=== PATIENT | female | born 1945 | race Caucasian/White ===

== ENCOUNTER 2018-06-15 21:39 | Emergency (ER) | payer OTHER, MEDICARE ==
[2018-06-15] MEDS ORDERED: METHYLPREDNISOLONE 125 MG INJ ONE (22:53)
[2018-06-15] MEDS ORDERED: DIPHENHYDRAMINE 50 MG/ML VIAL ONE (22:53)
--- NOTE | 2018-06-15 23:07 | EDPHYS ---
Physician Documentation [facility] Name: Louise Enriquez Age: 72 yrs Sex: Female : 1945 Arrival Date: 06/15/2018 Time: 21:43 Bed 23 Private MD: Didier Tay C ED Physician Ean Aj HPI: 06/15 23:03 This 72 yrs old Female presents to ER via Ambulatory with complaints of pkl Itching. 23:03 The patient presents with itching. Onset: The symptoms/episode began/occurred 2 day(s) pkl ago. Associated signs and symptoms: The patient has no apparent associated signs or symptoms. Historical: - Allergies: 21:53 No Known Allergies; la1 - PMHx: 21:53 BREAST CA; DVT; Myocardial infarction; Hypertension; la1 - Immunization history:: Adult Immunizations up to date. - Social history:: Smoking status: Patient/guardian denies using tobacco. - Ebola Screening: : No symptoms or risks identified at this time. ROS: 23:03 Eyes: Negative for injury, pain, redness, and discharge, ENT: Negative for injury, pkl pain, and discharge, Neck: Negative for injury, pain, and swelling, Cardiovascular: Negative for chest pain, palpitations, and edema, Respiratory: Negative for shortness of breath, cough, wheezing, and pleuritic chest pain, Abdomen/GI: Negative for abdominal pain, nausea, vomiting, diarrhea, and constipation, Back: Negative for injury and pain, : Negative for injury, bleeding, discharge, and swelling, MS/Extremity: Negative for injury and deformity, Neuro: Negative for headache, weakness, numbness, tingling, and seizure. 23:03 Skin: Positive for Itching. Exam: 23:03 Head/Face: Normocephalic, atraumatic. Eyes: Pupils equal round and reactive to light, pkl extra-ocular motions intact. Lids and lashes normal. Conjunctiva and sclera are non-icteric and not injected. Cornea within normal limits. Periorbital areas with no swelling, redness, or edema. ENT: Nares patent. No nasal discharge, no septal abnormalities noted. Tympanic membranes are normal and external auditory canals are clear. Oropharynx with no redness, swelling, or masses, exudates, or evidence of obstruction, uvula midline. Mucous membranes moist. Neck: Trachea midline, no thyromegaly or masses palpated, and no cervical lymphadenopathy. Supple, full range of motion without nuchal rigidity, or vertebral point tenderness. No Meningismus. Chest/axilla: Normal chest wall appearance and motion. Nontender with no deformity. No lesions are appreciated. Cardiovascular: Regular rate and rhythm with a normal S1 and S2. No gallops, murmurs, or rubs. Normal PMI, no JVD. No pulse deficits. Respiratory: Lungs have equal breath sounds bilaterally, clear to auscultation and percussion. No rales, rhonchi or wheezes noted. No increased work of breathing, no retractions or nasal flaring. Abdomen/GI: Soft, non-tender, with normal bowel sounds. No distension or tympany. No guarding or rebound. No evidence of tenderness throughout. Back: No spinal tenderness. No costovertebral tenderness. Full range of motion. MS/ Extremity: Pulses equal, no cyanosis. Neurovascular intact. Full, normal range of motion. Neuro: Awake and alert, GCS 15, oriented to person, place, time, and situation. Cranial nerves II-XII grossly intact. Motor strength 5/5 in all extremities. Sensory grossly intact. Cerebellar exam normal. Normal gait. 23:03 Skin: Exam negative for rash. Vital Signs: 21:53 BP 149 / 70; Pulse 74; Resp 16; Temp 97.8; Pulse Ox 98% on R/A; Weight 113.4 kg; Height la1 5 ft. 3 in. (160.02 cm); 23:00 BP 142 / 88; Pulse 76; Resp 17; Pulse Ox 99% ; kr2 21:53 Body Mass Index 44.29 (113.40 kg, 160.02 cm) la1 MDM: 22:30 Patient medically screened. pkl 23:03 Data reviewed: vital signs, nurses notes. pkl Administered Medications: 22:53 Drug: SOLU-Medrol 125 mg Route: IM; Site: right gluteus; kr2 23:20 Follow up: Response: No adverse reaction; Marked relief of symptoms kr2 22:53 Drug: Benadryl 50 mg Route: IM; Site: right deltoid; kr2 23:20 Follow up: Response: No adverse reaction; Marked relief of symptoms kr2 Disposition: 06/15/18 23:06 Discharged to Home. Impression: Generalized itching. - Condition is Stable. - Medication Reconciliation Form, Thank You Letter, Antibiotic Education, Prescription Opioid Use form. - Follow up: Didier Tay MD; When: 2 - 3 days; Reason: Re-evaluation by your physician. - Problem is new. - Symptoms have improved. Signatures: Ean Aj MD MD pkl Isai Martin RN RN la1 Sarah Henriquez RN RN kr2 Zoraida Arana mw2 Corrections: (The following items were deleted from the chart) 23:39 23:06 06/15/2018 23:06 Discharged to Home. Impression: Generalized itching. Condition mw2 is Stable. Forms are Medication Reconciliation Form, Thank You Letter, Antibiotic Education, Prescription Opioid Use. Follow up: Didier Tay; When: 2 - 3 days; Reason: Re-evaluation by your physician. Problem is new. Symptoms have improved. pkl
--- NOTE | 2018-06-15 23:07 | ER ---
Nurse's Notes [facility] Name: Louise Enriquez Age: 72 yrs Sex: Female : 1945 Arrival Date: 06/15/2018 Time: 21:43 Bed 23 Private MD: Didier Tay C Diagnosis: Generalized itching Presentation: 06/15 21:52 Presenting complaint: Patient states: last night and tonight I am getting very bad la1 itching all over. Transition of care: patient was not received from another setting of care. Onset: The symptoms/episode began/occurred yesterday. Anaphylaxis evaluation, the patient reports or I have noted the following symptoms which indicate a significant risk of anaphylaxis:. Onset of symptoms was June 15, 2018. Risk Assessment: Do you want to hurt yourself or someone else? Patient reports no desire to harm self or others. Initial Sepsis Screen: Does the patient meet any 2 criteria? No. Patient's initial sepsis screen is negative. Does the patient have a suspected source of infection? No. Patient's initial sepsis screen is negative. Care prior to arrival: None. 21:52 Method Of Arrival: Ambulatory la1 21:52 Acuity: JAIR 4 la1 Historical: - Allergies: 21:53 No Known Allergies; la1 - PMHx: 21:53 BREAST CA; DVT; Myocardial infarction; Hypertension; la1 - Immunization history:: Adult Immunizations up to date. - Social history:: Smoking status: Patient/guardian denies using tobacco. - Ebola Screening: : No symptoms or risks identified at this time. Screenin:00 Abuse screen: Denies threats or abuse. Denies injuries from another. Nutritional kr2 screening: No deficits noted. Tuberculosis screening: No symptoms or risk factors identified. Fall Risk Ambulatory Aid- Crutches/Cane/Walker (15 pts). Assessment: 22:00 General: Appears in no apparent distress. comfortable, well groomed, well developed, kr2 well nourished, Behavior is calm, cooperative, appropriate for age. Pain: Denies pain. Neuro: Level of Consciousness is awake, alert, obeys commands, Oriented to person, place, time, situation, Appropriate for age. Cardiovascular: Capillary refill < 3 seconds in bilateral fingers Patient's skin is warm and dry. Respiratory: Airway is patent Respiratory effort is even, unlabored, Respiratory pattern is regular, symmetrical, Breath sounds are clear bilaterally. Derm: Skin is intact, is healthy with good turgor, Skin is pink, warm \T\ dry. Patient reports itching all over last night and tonight she has itching in her hands, no rash. 23:15 Reassessment: Patient appears in no apparent distress at this time. Patient and/or kr2 family updated on plan of care and expected duration. Pain level reassessed. Patient is alert, oriented x 3, equal unlabored respirations, skin warm/dry/pink. Patient denies pain at this time. Vital Signs: 21:53 BP 149 / 70; Pulse 74; Resp 16; Temp 97.8; Pulse Ox 98% on R/A; Weight 113.4 kg; Height la1 5 ft. 3 in. (160.02 cm); 23:00 BP 142 / 88; Pulse 76; Resp 17; Pulse Ox 99% ; kr2 21:53 Body Mass Index 44.29 (113.40 kg, 160.02 cm) la1 ED Course: 21:43 Patient arrived in ED. es 21:43 Didier Tay MD is Private Physician. es 21:53 Triage completed. la1 21:54 Arm band placed on right wrist. la1 22:00 Patient has correct armband on for positive identification. Bed in low position. Call kr2 light in reach. Side rails up X 1. Adult w/ patient. Pulse ox on. NIBP on. Door closed. Head of bed elevated. 22:30 Ean Aj MD is Attending Physician. pkl 22:44 Sarah Henriquez RN is Primary Nurse. kr2 23:06 Didier Tay MD is Referral Physician. pkl 23:31 No provider procedures requiring assistance completed. Patient did not have IV access kr2 during this emergency room visit. Administered Medications: 22:53 Drug: SOLU-Medrol 125 mg Route: IM; Site: right gluteus; kr2 23:20 Follow up: Response: No adverse reaction; Marked relief of symptoms kr2 22:53 Drug: Benadryl 50 mg Route: IM; Site: right deltoid; kr2 23:20 Follow up: Response: No adverse reaction; Marked relief of symptoms kr2 Outcome: 23:06 Discharge ordered by . pkl 23:31 Discharged to home ambulatory, with friend. kr2 23:31 Condition: good 23:31 Discharge instructions given to patient, Instructed on discharge instructions, follow up and referral plans. Demonstrated understanding of instructions, follow-up care. 23:39 Patient left the ED. mw2 Signatures: Ean Aj MD MD pkl Salyer, Edna es Attema, Lee RN RN la1 Sarah Henriquez RN RN kr2 Zoraida Arana mw2 Corrections: (The following items were deleted from the chart) 23:29 22:00 Reassessment: Patient appears in no apparent distress at this time. Patient kr2 and/or family updated on plan of care and expected duration. Pain level reassessed. Patient is alert, oriented x 3, equal unlabored respirations, skin warm/dry/pink. Patient denies pain at this time. kr2
[2018-06-16 00:25] VITALS: TEMP 97.8
[2018-06-16 00:26] VITALS: BP 142/88; O2SAT 99
== END 2018-06-15 23:39 | disposition home or self-care (01) ==
LOC: ER 21:39
DX: L29.9 Pruritus, unspecified (principal)
CPT/HCPCS: 96372; 99283; J2930

== ENCOUNTER 2022-08-21 06:51 | Day surgery (SDC) | payer OTHER, MEDICARE ==
--- NOTE | 2022-08-18 10:47 | RAD REPORT ---
EXAM DESCRIPTION: Clinton Cerna (2 Views)08/18/2022 10:28 am CLINICAL HISTORY: Preop for breast surgery COMPARISON: 2016 FINDINGS: The lungs appear clear of acute infiltrate. The heart is mildly enlarged. Postsurgical ch anges involve the chest IMPRESSION: No acute abnormalities displayed
[2022-08-18 11:03] LABS: Absolute Lymphocytes (CBC) 1.1 K/uL (0.7-4.9); Hematocrit 41.5 % (36.0-45.0); Lymphocytes % 25.6 % (15.3-44.8); MCV 93.4 fL (80-100); MPV 7.2 fL (7.6-11.3); RBC Red Blood Cell Count 4.45 M/uL (3.86-4.86)
[2022-08-18 11:09] LABS: Potassium 4.4 mmol/L (3.5-5.1)
--- NOTE | 2022-08-18 17:30 | EKG ---
Test Date: 2022-08-18 Test Time: 10:09:20 Turbo Electric Operator: CELESTE MEASUREMENT RESULTS: Intervals: Rate: 82 HI: 162 QRSD: 88 QT: 380 QTc: 443 [place]: P: 57 HI: 162 QRS: -57 T: 53 INTERPRETIVE STATEMENTS: Normal sinus rhythm Left axis deviation Possible Anterolateral infarct, age undetermined Abnormal ECG Compared to ECG 01/15/2016 09:06:15 No significant changes Electronically Signed On 08-18-22 17:29:51 FREIGHT RATE ANALYST by Morgan Moseley
[2022-08-21] MEDS ORDERED: Ringers Lactate 1,000 ML IV ONE (07:13)
[2022-08-21] MEDS ORDERED: FENTANYL CITR 100 MCG/2 ML ONE (08:28)
[2022-08-21] MEDS ORDERED: LIDOCAINE 1% MPF 5 ML VIAL ONE (08:28)
[2022-08-21] MEDS ORDERED: propofoL 200 MG/20 ML VIAL IV ONE (08:28)
[2022-08-21] MEDS ORDERED: dexAMETHasone 4 MG/ML VIAL ONE (08:29)
[2022-08-21] MEDS ORDERED: KETOROLAC 30 MG/ML INJ ONE (08:29)
[2022-08-21] MEDS ORDERED: ONDANSETRON 4 MG/2 ML VIAL ONE (08:29)
[2022-08-21] MEDS: CEFAZOLIN SODIUM 1 GM/VIAL ONE ×2 (08:29→08:43)
[2022-08-21] MEDS ORDERED: EPHEDRINE SULF 50 MG/ML VIAL ONE (09:03)
--- NOTE | 2022-08-21 09:48 | P.BOP ---
Preoperative diagnosis: R breast masses(2) Upper outer quadrant, lower outer quadrant,breast cancer Postoperative diagnosis: same Primary procedure: 1. Right breast lumpectomy Upper outer quadrant 3x3cm Secondary procedure: 2. Right breast lumpectomy lower outer quadrant 2x2cm Jack Prizer: SEBLE MOLINA (GYPSUM BLOCK SETTER) Estimated blood loss: <10cc Specimen: masses x 2 Findings: calcified masses Anesthesia: General Complications: None Transferred to: Recovery Room Condition: Good
[2022-08-21] MEDS: HYDROMORPHONE HCL 1 MG/ML INJ ONE ×2 (10:17→10:22)
[2022-08-21 11:29] VITALS: BP 163/64; TEMP 96.9; O2SAT 96
--- NOTE | 2022-08-21 17:54 | DS ---
Date of Discharge: 08/21/2022 Diagnosis: Right breast mass x2. Procedure: Right breast lumpectomy x2. Disposition: Home. Activity: As tolerated. No heavy lifting. Plan: Followup in my office in 1 week. Call for appointment on [phone]. Keep area intact until sh e see us in the next few days. MATTHEW/USAMA Voice ID: [id number] Report ID: [id number]
--- NOTE | 2022-08-21 17:54 | OP ---
Date of Procedure: 08/21/2022 Surgeon: Teofilo Mcdonnell MD Lunch Wagon Operator: Viri Acosta. Preoperative Diagnoses: Palpable right breast masses; 1.Upper outer quadrant. 2.Lower outer quadrant, also history of breast cancer. Postoperative Diagnoses: Palpable right breast masses; 1.Upper outer quadrant. 2.Lower outer quadrant, also history of breast cancer. Procedures: 1.Right breast lumpectomy, upper outer quadrant about 3 x 3 cm. 2.Right breast lumpectomy, lower outer quadrant, 2 x 2 cm. Estimated Blood Loss: Less than 10 mL. Specimen: Masses x2. Findings: Calcified masses. Anesthesia: General plus local. Indication: This is the case of a female with history of breast cancer, now came with 2 masses palpa mi on the breast, right upper outer quadrant and lower outer quadrant. The oncologist felt the mass es 2 and do want an excisional biopsy not only because it is an area which she has previous cancer, b ut also because it is bothering the patient. The patient does not want a core and want the mass pepper anaya, so we scheduled her for right breast lumpectomy x2. The benefits, alternatives, and risks fully explained which include, but not limited to infection, bleeding, damage to adjacent structures, anes thesia complication, ME, and even . She also understands this may not relieve any symptoms. Sh gabriel might need more than one surgical intervention. She understood, signed a consent. The area of con cern was marked by me and the patient in the holding room. Procedure In Detail: The patient was brought to the operating room, placed in supine position. Anes thesia was done without complication. The right breast was prepped and draped in usual sterile fashi on. There are 2 different masses, so we have to make 2 different incisions. We started with a small 1 first that area. We proceeded to make a wedge incision on the skin since the skin looks to be inv olved with it. Incision was carried down and we followed this calcified mass. We went around that m ass and removed it and marked for orientation. Muscles seem not to be involved. Area was irrigated. Hemostasis was obtained and we closed the area with a chromic and miguel. The second mass was on the upper outer quadrant. Once again, a wedge incision on the skin was made. Incision was carried d own all the way to the mass. It looked like a calcified multinodular mass, does not involve the fasc ia of the muscle, so the mass was completely excised and marked for orientation. The area was irriga mi. Once again, that area was closed with a combination of chromic and miguel. Hemostasis was obt ained. Irrigation also was done at the beginning. Also, local anesthesia was applied. The patient tolerated the procedure well. The patient was sent to recovery in stable condition. MATTHEW/USAMA Voice ID: [id number] Report ID: [id number]
== END 2022-08-21 11:20 | disposition home or self-care (01) ==
LOC: OR 06:51
PROVIDERS: ATTEND Surgery
PROC: 0HBT0ZZ Excision of Right Breast, Open Approach (ICD-10-PCS; principal; 2022-08-21 08:30)
DX: L72.0 Epidermal cyst (principal); M79.5 Residual foreign body in soft tissue; N64.89 Other specified disorders of breast; N63.11 Unspecified lump in the right breast, upper outer quadrant; N63.13 Unspecified lump in the right breast, lower outer quadrant; Z85.3 Personal history of malignant neoplasm of breast
CPT/HCPCS: 19301 ×2; 93005; 85025; 80048; 36415; 88305; 71046; J2704; J1100; J2001; J3010; J1170; J7120; J2405; J0690; 88307; 88311

== ENCOUNTER 2024-04-29 12:10 | Day surgery (SDC) | payer OTHER, MEDICARE ==
[2024-04-28 15:42] LABS: Absolute Lymphocytes (CBC) 1.3 K/uL (0.7-4.9); Absolute Monocytes 0.7 K/uL (0.1-1.3); Absolute Neutrophil 3.3 K/uL (1.8-8.0); Basophils % 0.7 % (0-1.3); Eosinophils % 0.6 % (0-4.4); Hematocrit 40.6 % (36.0-45.0); Hemoglobin 13.1 g/dL (12.0-15.0); Lymphocytes % 23.9 % (15.3-44.8); MCH 29.1 pg (27.0-35.0); MCHC 32.2 g/dL (32.0-36.0); MCV 90.1 fL (80-100); Monocytes % 13.8 % (3.3-12.3); Platelets 216 thou/uL (152-406); RBC Red Blood Cell Count 4.51 M/uL (3.86-4.86); Red Cell Distribution Width 17.9 % (12.1-15.2)
[2024-04-28 15:45] LABS: PT Prothrombin Time 11.9 SECONDS (9.4-12.5); PTT, Activated Partial Thromb 33.2 SECONDS (24.3-36.9); Protime INR 1.06
[2024-04-28 15:58] LABS: Anion Gap 7.4 mEq/L (5.0-15.0); Potassium 4.4 mEq/L (3.5-5.1)
--- NOTE | 2024-04-28 16:17 | RAD REPORT ---
Procedure: Chest Pa And Lat (2 Views) History: Preop for carotid and coronary angiogram Comparison: 2022 The lungs appear clear of acute infiltrate. No significant pleural effusion noted. The heart is mildly enlarged IMPRESSION: No acute abnormality is displayed.
[2024-04-29] MEDS ORDERED: NA CHLORIDE 0.9% 500 ML ONE (12:35)
[2024-04-29] MEDS ORDERED: HEPARIN 10,000 UNIT/10 ML VIAL IV ONE (13:13)
[2024-04-29] MEDS ORDERED: LIDOCAINE 1% 20 ML MDV ONE (13:13)
[2024-04-29] MEDS ORDERED: TICAGRELOR 90 MG TABLET PO ONE (13:14)
[2024-04-29] MEDS ORDERED: CLOPIDOGREL 75 MG TABLET ONE (13:14)
[2024-04-29] MEDS ORDERED: ATROPINE SULF 1 MG/10 ML SYR IV ONE (13:14)
[2024-04-29] MEDS ORDERED: HEPA 1000U/500MLS 2,000 UNIT/1,000 ML BAG IV ONE (13:15)
[2024-04-29] MEDS ORDERED: ASPIRIN 81 MG CHEWABLE TABLET ONE (13:15)
[2024-04-29] MEDS ORDERED: FENTANYL CITR 100 MCG/2 ML ONE (13:15)
[2024-04-29] MEDS ORDERED: MIDAZOLAM HCL 2 MG/2 ML INJ ONE (13:16)
[2024-04-29 15:54] VITALS: O2SAT 96
[2024-04-29 16:51] VITALS: BP 154/58
--- NOTE | 2024-04-29 21:00 | OP ---
Date of Procedure: 04/29/2024 Surgeon: KERI EVANS Procedures Performed: 1.Selective coronary angiogram. 2.Carotid angiogram, selective bilaterally. Indications: 1.Chest pain with abnormal stress test. 2.Carotid stenosis. Access: Right common femoral artery 6-Georgian closed with 6-Georgian Mynx closure device. Complications: None. Bleeding: Less than 50 mL. Anesthesia: Total sedation time was 45 minutes, used fentanyl and Versed. Description Of Procedure: After risks, benefits, and alternatives were explained, patient agreed to the procedure and signed informed consent. The [facility], prepped and draped in usual sterile fashion. Then, I accessed the right common femoral arter y using micropuncture kit, ultrasound guidance, and fluoroscopy, placed 6-Georgian [place] sheath and then took a 4-Georgian 3DRC catheter into the aortic arch and engaged the right common carotid, took st andard views, and then in the left common carotid, took standard views and then the same catheter was used to engage the RCA, took standard views. I then exchanged for 6-Georgian JL4 catheter, engaged th e left main, took standard views and then removed the catheter and the sheath, and used a 6-Georgian My nx closure device with good hemostasis. Findings: 1.Left main; proximal 20%, but it is very large with large lumen. 2.LAD; proximal mid segment and normal distal segment having mild 20% to 30% diffuse disease. Diago nal branches are with luminal irregularities. 3.Left circumflex; proximal segment is normal and then left circumflex becomes small. The OM1 branc h is very large. Has 50% stenosis in the proximal segment. 4.RCA; it is dominant circulation which is normal, and on the PDA, there is about 40% stenosis proxi cruz. Carotid Angiogram: 1.The right common carotid. Mid to distal, there is a severely calcified 90% stenosis, extends into the pulp and into the internal carotid artery which has about 70% stenosis. The external carotid ar dee is normal. 2.Left common carotid is normal. Left internal carotid is with 30% stenosis, and left external suárez tid is normal. Conclusion: 1.Severe right common carotid and internal carotid artery stenosis. 2.Mild to moderate coronary artery disease. Recommendation: Endarterectomy of the right side in the near future. SR/MODL Voice ID: [id number] Report ID: [id number]
== END 2024-04-29 16:45 | disposition home or self-care (01) ==
LOC: CCL 12:10
PROVIDERS: ATTEND Internal Medicine
DX: I65.23 Occlusion and stenosis of bilateral carotid arteries (principal); I25.10 Atherosclerotic heart disease of native coronary artery without angina pectoris; I10 Essential (primary) hypertension; E78.2 Mixed hyperlipidemia; Z86.73 Personal history of transient ischemic attack (TIA), and cerebral infarction without residual deficits; Z86.718 Personal history of other venous thrombosis and embolism; Z79.01 Long term (current) use of anticoagulants; Z82.49 Family history of ischemic heart disease and other diseases of the circulatory system; I34.0 Nonrheumatic mitral (valve) insufficiency
CPT/HCPCS: 85025; 80048; 36415; 85610; 85730; 71046; 93454; 36222; 76937; C1893; J2001; J2250; J3010; J7040; 99152; 99153; J0461

== ENCOUNTER 2024-05-31 10:01 | Emergency (ER) | payer OTHER, MEDICARE ==
--- OUTSIDE RECORDS SUMMARY | 2024-05-31 10:06 | XMS REPORT | Continuity of Care Document ---
Author Name Unknown Address [address] [facility] [address] [place] [address] [facility] Address [address] [facility] [address] [place] [address] Care Team Providers Care Marketing Developer Name Role Phone Antonia Mims Attending Clinician Antonia Coleman Admitting Clinician Natalie rios Payers Payer Name Policy Type Policy Number Effective Date Expirati on Date Source Allergies, Adverse Reactions, Alerts Allergy Name Allergy Type Status Severity Reaction(s) Onset Date Inactive Date Treating Clinician Comments Source No Known Allergie s DA Active U 2023-07 0- 00:00: 00 [facility] No Known Allergie s DA Active U 2023-07 0- 00:00: 00 [facility] Procedures Procedure Date / Time Performed Performing Clinicia n Source [id number] 2024-05-21 00:00:00 [facility] [id number] 2024-05-21 00:00:00 [facility]01 [facility] [id number] 2024-05-21 00:00:00 [facility]01 [facility] Encounters Start Date/Time End Date/Time Encounter Type Admission Type Attending Clinicians Care Facility Care Department Encounter ID Source 2024-05-21 10:09:00 2024-05-22 12:02:[address] [facility] CARD [id number] [facility] Results Test Description Test Time Test Comments Results Result Co mments Source BASIC METABOLIC [id number] 03:53:00* Test Item Value Reference Range Interpretation Comme nts SODIUM (test code = NA) 141 mEq/L 134-147 N POTASSIUM (test code = K) 4.6 mEq/L 3.4-5.0 CHLORIDE (test code = CL) 111 mEq/L 100-108 H CARBON DIOXIDE (test code = CO2) 24 mEq/l 21-33 N ANION GAP (test code = GAP) 11 0-20 N GLUCOSE (test code = GLU) 110 mg/dL 77-141 N BLOOD UREA NITROGEN (test code = BUN) 14 mg/dL 7-25 N GLOMERULAR FILTRATION RATE (test code = GFR) 87.4 70-80 H The Glomerular Filtration Rate is a calculated parameterbased on serum Creatinine, patient age and sex. GFR valuesless than 60 mL/min/1.73 square meters are indicative ofChronic Kidney Disease. Values less than 15 mL/min/1.73square meters indicate Kidney failure. The calculation forGFR is based on the CKD-EPI (2020) calculation. This formulais race indifferent and is the recommended formula for GFRby the National Kidney Foundation for Adults.The GFR will not calculate if the sex is unknown or if thepatient's age is <18 years. CREATININE (test code = CREAT) 0.7 mg/dL 0.6-1.3 N CALCIUM (test code = CA) 8.6 mg/dL 8.0-10.5 N CBC W/AUTO [id number] 03:41:00* Test Item Value Reference Range Interpretation Comme nts WHITE BLOOD CELL (test code = WBC) 6.1 x10 3/uL 4.5-11.0 RED BLOOD CELL (test code = RBC) 3.58 x10 6/uL 3.54-5.02 N HEMOGLOBIN (test code = HGB) 10.0 g/dL 11.0-15.0 L HEMATOCRIT (test code = HCT) 31.5 % 33.0-45.0 L MEAN CELL VOLUME (test code = MCV) 88.0 fL 81.0-99.0 N MEAN CELL HGB (test code = MCH) 27.9 pg 27.0-33.0 N MEAN CELL HGB CONCETRATION (test code = MCHC) 31.7 g/dL 33.0-37.0 L RED CELL DISTRIBUTION WIDTH CV (test code = RDW) 16.3 % 11.5-14.5 H RED CELL DISTRIBUTION WIDTH SD (test code = RDW-SD) 52.8 fL 37.0-54.0 N PLATELET COUNT (test code = PLT) 162 x10 3/uL 150-400 N MEAN PLATELET VOLUME (test c ode = MPV) 9.0 fL 7.0-9.0 N NEUTROPHIL % (test code = NT%) 82.4 % 56.0-77.0 H IMMATURE GRANULOCYTE % (test code = IG%) 0.7 % 0.0-2.0 N LYMPHOCYTE % (test code = LY%) 10.0 % 14.0-32.0 L MONOCYTE % (test code = MO%) 6.9 % 4.8-9.0 N EOSINOPHIL % (test code = EO%) 0.0 % 0.3-3.7 L BASOPHIL % (test code = BA%) 0.0 % 0.0-2.0 N NUCLEATED RBC % (test code = NRBC%) 0.0 % 0-0 N NEUTROPHIL # (test code = NT#) 5.03 x10 3/uL 2.0-7.6 N IMMATURE GRANULOCYTE # (test code = IG#) 0.04 x10 3/uL 0.00-0.03 H LYMPHOCYTE # (test code = LY#) 0.61 x10 3/uL 1.0-3.8 L MONOCYTE # (test code = MO#) 0.42 x10 3/uL 0.1-0.8 N EOSINOPHIL # (test code = EO#) 0.00 x10 3/uL 0.0-0.2 N BASOPHIL # (test code = BA#) 0.00 x10 3/uL 0.0-0.2 N NUCLEATED RBC # (test code = NRBC#) 0.00 x10 3/uL 0.0-0.1 N BASIC METABOLIC [id number] 17:24:00* Test Item Value Reference Range Interpretation Comme nts SODIUM (test code = NA) 144 mEq/L 134-147 N POTASSIUM (test code = K) 3.7 mEq/L 3.4-5.0 N CHLORIDE (test code = CL) 113 mEq/L 100-108 H CARBON DIOXIDE (test code = CO2) 22 mEq/l 21-33 N ANION GAP (test code = GAP) 13 0-20 N GLUCOSE (test code = GLU) 127 mg/dL 77-141 BLOOD UREA NITROGEN (test code = BUN) 14 mg/dL 7-25 N GLOMERULAR FILTRATION RATE (test code = GFR) 87.4 70-80 H The Glomerular Filtration Rate is a calculated parameterbased on serum Creatinine, patient age and sex. GFR valuesless than 60 mL/min/1.73 square meters are indicative ofChronic Kidney Disease. Values less than 15 mL/min/1.73square meters indicate Kidney failure. The calculation forGFR is based on the CKD-EPI (2020) calculation. This formulais race indifferent and is the recommended formula for GFRby the National Kidney Foundation for Adults.The GFR will not calculate if the sex is unknown or if thepatient's age is <18 years. CREATININE (test code = CREAT) 0.7 mg/dL 0.6-1.3 N CALCIUM (test code = CA) 8.7 mg/dL 8.0-10.5 N HGB [id number] 17:08:00* Test Item Value Reference Range Interpretation Comme nts HEMOGLOBIN (test code = HGB) 10.7 g/dL 11.0-15.0 L HEMATOCRIT (test code = HCT) 34.0 % 33.0-45.0 N [id number] 15:49:00* Test Item Value Reference Range Interpretation Comme nts ACT-ISTAT (test code = ACTI) 311 SEC 74-137 H Performed by svetlana britt pouch making machine operator at [facility] LIPID PROFILE (CORONARY RISK)2024-05-21 12:15:00* Test Item Value Reference Range Interpretation Comme nts TRIGLYCERIDES (test code = TRIG) 143 mg/dL 40-150 N CHOLESTEROL (test code = CHOL) 177 mg/dL <200 CHOLESTEROL/HDL RATIO (test code = CHOLHDL) 2.64 RATIO 3.27-4.44 L RISK ASSOCIATED WITH CHOL/HDL RATIOS: RISK MALE FEMALE1/2 AVERAGE 3.43 3.27AVERAGE 4.97 4.442X AVERAGE 9.55 7.053X AVERAGE 23.39 11.04 NOTE THAT THE REFERENCE VALUE IS RELATEDTO RISK LEVELS RECOMMENDED BY THE NATL.HEART, LUNG, AND BLOOD INST. HDL CHOLESTEROL (test code = HDL) 67.1 MG/DL 40-60 H HDL Interpreta tion < 40.0 mg/dL Low (undesirable, high risk)> 60.0 mg/dL High (desirable, low risk) Reference interval for healthy adults was established by theNational Cholesterol Education Program (NCEP). LIPOPROTEIN LDL (test code = LDL) 92.0 mg/dL 0-100 N <100 [id number] 0-129 NEAR OPTIMAL/ABOVE [id number] HIGH>MF=742 VERY HIGH*Guidelines provided by the National Cholesterol EducationProgram Adult Treatment Panel III COMPREHENSIVE METABOLIC [id number] 12:15:00* Test Item Value Reference Range Interpretation Comme nts SODIUM (test code = NA) 143 mEq/L 134-147 N POTASSIUM (test code = K) 3.9 mEq/L 3.4-5.0 N CHLORIDE (test code = CL) 109 mEq/L 100-108 H CARBON DIOXIDE (test code = CO2) 27 mEq/l 21-33 N ANION GAP (test code = GAP) 11 0-20 N GLUCOSE (test code = GLU) 98 mg/dL 77-141 N BLOOD UREA NITROGEN (test code = BUN) 14 mg/dL 7-25 N GLOMERULAR FILTRATION RATE (test code = GFR) 74.4 70-80 N The Glomerular Filtration Rate is a calculated parameterbased on serum Creatinine, patient age and sex. GFR valuesless than 60 mL/min/1.73 square meters are indicative ofChronic Kidney Disease. Values less than 15 mL/min/1.73square meters indicate Kidney failure. The calculation forGFR is based on the CKD-EPI (202) calculation. This formulais race indifferent and is the recommended formula for GFRby the National Kidney Foundation for Adults.The GFR will not calculate if the sex is unknown or if thepatient's age is <18 years. CREATININE (test code = CREAT) 0.8 mg/dL 0.6-1.3 N TOTAL PROTEIN (test code = PROT) 6.9 g/dL 6.4-8.2 N ALBUMIN (test code = ALB) 3.50 g/dL 3.4-5.0 N CALCIUM (test code = CA) 9.5 mg/dL 8.0-10.5 N BILIRUBIN TOTAL (test code = BILT) 0.90 mg/dL 0.0-1.0 N SGOT/AST (test code = AST) 24 IUnit/L 8-34 N SGPT/ALT (test code = ALT) 14 IUnit/L 10-49 N ALKALINE PHOSPHATASE TOTAL (test code = ALKP) 46 IUnit/L 20-125 N GLUCOSE [id number] 11:31:00* Test Item Value Reference Range Interpretation Comme nts GLUCOSE BEDSIDE (test code = GLUBED) 110 MG/DL 70-110 N Performed by cer tified pouch making machine operator at [facility] PROTHROMBIN [id number] 11:25:00* Test Item Value Reference Range Interpretation Comme nts PROTHROMBIN TIME PATIENT (test code = PTP) 11.5 SECONDS 9.3-12.9 N INTERNATIONAL NORMAL RATIO (test code = INR) 1.0 0.8-1.2 N TARGET INR BY INDICATION Indication INR1. Prophylaxis of venous thrombosis 2.0 - 3.0 (orthopedic surgery), Prophylaxis of venous thrombosis (other than high-risk surgery), Treatment of Deep Vein Thrombosis/Pulmonary Embolism, Prevention of systemic embolism - Tissue heart valves, Acute Myocardial Infarction (to prevent systemic embolism), Valvular heart disease, Atrial Fibrillation, Bileaflet mechanical valve in aortic position.2. Mechanical prosthetic valves (high risk), 2.5 - 3.5 Presence of Lupus Anticoagulant or Antiphospholipid Antibodies, Prevention of systemic embolism - Acute Myocardial Infarction (to prevent recurrent infarct). CBC W/AUTO [id number] 11:17:00* Test Item Value Reference Range Interpretation Comme nts WHITE BLOOD CELL (test code = WBC) 4.2 x10 3/uL 4.5-11.0 L RED BLOOD CELL (test code = RBC) 4.25 x10 6/uL 3.54-5.02 N HEMOGLOBIN (test code = HGB) 11.9 g/dL 11.0-15.0 N HEMATOCRIT (test code = HCT) 37.9 % 33.0-45.0 N MEAN CELL VOLUME (test code = MCV) 89.2 fL 81.0-99.0 N MEAN CELL HGB (test code = MCH) 28.0 pg 27.0-33.0 N MEAN CELL HGB CONCETRATION (test code = MCHC) 31.4 g/dL 33.0-37.0 L RED CELL DISTRIBUTION WIDTH CV (test code = RDW) 16.4 % 11.5-14.5 H RED CELL DISTRIBUTION WIDTH SD (test code = RDW-SD) 52.5 fL 37.0-54.0 N PLATELET COUNT (test code = PLT) 181 x10 3/uL 150-400 N MEAN PLATELET VOLUME (test c ode = MPV) 8.9 fL 7.0-9.0 N NEUTROPHIL % (test code = NT%) 57.1 % 56.0-77.0 N IMMATURE GRANULOCYTE % (test code = IG%) 0.5 % 0.0-2.0 N LYMPHOCYTE % (test code = LY%) 27.6 % 14.0-32.0 N MONOCYTE % (test code = MO%) 13.8 % 4.8-9.0 H EOSINOPHIL % (test code = EO%) 0.5 % 0.3-3.7 N BASOPHIL % (test code = BA%) 0.5 % 0.0-2.0 N NUCLEATED RBC % (test code = NRBC%) 0.0 % 0-0 N NEUTROPHIL # (test code = NT#) 2.40 x10 3/uL 2.0-7.6 N IMMATURE GRANULOCYTE # (test code = IG#) 0.02 x10 3/uL 0.00-0.03 N LYMPHOCYTE # (test code = LY#) 1.16 x10 3/uL 1.0-3.8 N MONOCYTE # (test code = MO#) 0.58 x10 3/uL 0.1-0.8 N EOSINOPHIL # (test code = EO#) 0.02 x10 3/uL 0.0-0.2 N BASOPHIL # (test code = BA#) 0.02 x10 3/uL 0.0-0.2 N NUCLEATED RBC # (test code = NRBC#) 0.00 x10 3/uL 0.0-0.1 N Notes Date/Time Note Provider Source 2024-05-22 09:56:00 [facility] ([facility]) Discharge Summary REPORT#:[id number] REPORT STATUS: Signed REPORT INITIALIZATION DATE:05/22/24 TIME: 955 PATIENT: ARTHUR PENALOZA UNIT #: [id number] ROOM/BED: G3314-1 : 43 AGE: 78 SEX: F ATTEND: Antonia Mims MD ADM AUTHOR: Renate Akers APRN REPT SERVICE DT/TIME: 05/22/24 0956 * ALL edits or amendments must be made on the electronic/computer document * PCP PCP PCP: PCP: No Primary or Family Physician Discharge to: home General Information Discharge date: 05/22/24 Discharge diagnosis: s/p right CEA Hospital course: This is a pleasant 78-year-old female with a past medical history of hypertension, hyperlipidemia, rheumatoid arthritis, bilateral breast cancer in which she was treated with chemo and radiation as well as bilateral lumpectomy, DVT x 2 and left leg, and per patient clot in right shoulder. Patient is on lifelong Xarelto. Patient was undergoing routine cardiology workup for significant dyspnea on exertion. Chest x-ray shows no acute abnormality. Echocardiogram shows EF 60%, trace mitral regurgitation, and trace tricuspid regurgitation. Coronary angiogram and carotid angiogram done that shows mild to moderate CAD, and severely calcified right common carotid artery with 90% stenosis extending into the right internal carotid artery which has 70% stenosis. Left common carotid artery is normal, left internal carotid artery has 30% stenosis. Patient is being admitted today for right carotid endarterectomy. Assessment/plan: 1. Dyspnea 2. Severe right carotid artery stenosis 3. Hypertension 4. Hyperlipidemia 5. History of rheumatoid arthritis 6. History of breast cancer 7. History of DVT Patient seen and examined by Dr. Mims. Carotid angiogram findings reviewed and results discussed with patient and her daughter. Dr. Mims has discussed in detail to the patient the need for right carotid endarterectomy and explained the operation, risks involved including stroke, benefits, alternatives, and complications. Patient acknowledges understanding and is agreeable to proceed with surgery. The patient's questions were answered and consent is obtained. Patient is being admitted today for right carotid endarterectomy. Admit to CCU postoperatively Monitor neurochecks Critical care consulted 05/21/24 R CEA 05/22/24 POD 1 AAOx3,reports a cough Able to move all extremities, conversing well Reviewed labs Breathing comfortable on room air NSR, monitoring BP Tolerating diet, voiding Removed drain, incision site has no redness, swelling, oozing or purulent drainage Speech therapy consulted for bedside eval Patient will be discharged today. Good family support. Patient given a post op apt, and recommended to go for a sleep study with Dr. Contreras. Patient seen and examined by Dr. Mims. Plan of care discussed with patient, nurse and interdisciplinary team. All questions answered. Med Rec PCP PCP: PCP: No Primary or Family Physician Med Rec Discharge meds: Continue taking these medications: RIVAROXABAN (XARELTO) 20 MG TAB 20 MILLIGRAM ORAL BEDTIME. LEVOTHYROXINE (SYNTHROID) 88 MCG TAB 88 MICROGRAM ORAL DAILY. FUROSEMIDE (LASIX) 20 MG TAB 60 MILLIGRAM ORAL DAILY. VALSARTAN (DIOVAN) 40 MG TAB 40 MILLIGRAM ORAL DAILY. ROSUVASTATIN (ROSUVASTATIN) 10 MG TAB 10 MILLIGRAM ORAL DAILY. RISEDRONATE (ACTONEL) 150 MG TAB 150 MILLIGRAM ORAL Q30D FAMOTIDINE (PEPCID) 40 MG TAB 40 MILLIGRAM ORAL BEDTIME. OMEPRAZOLE ER (PriLOSEC) 40 MG CAP.DR 40 MILLIGRAM ORAL DAILY. HYDROXYCHLOROQUINE SULFATE (PLAQUENIL) 200 MG TAB 200 MILLIGRAM ORAL TWICE DAILY. POTASSIUM CHLORIDE ER (KLOR-CON M20) 20 MEQ TAB.SR 20 MILLIEQUIVALENT ORAL BEDTIME. FOLIC ACID (FOLIC ACID) 1 MG TAB 1 MILLIGRAM ORAL DAILY. METHOTREXATE (RHEUMATREX) 2.5 MG TAB 2.5 MILLIGRAM ORAL EVERY SUNDAY CERTOLIZUMAB PEGOL (CIMZIA) 400 MG/2 ML (200 MG/ML X 2) DISP.SYRIN 800 MILLIGRAM SUBCUTANEOUS Q28D Objective VS/I O Last Documented: Result Date Time Pulse Ox 97 05/22 830 B/P 145/55 05/22 830 B/P Mean 90 05/22 830 Pulse 90 05/22 830 Resp 18 05/22 830 Temp 98.5 05/22 08 O2 Delivery Nasal cannula 05/21 2016 O2 Flow Rate 2 05/21 2016 24 hour I O ending at 0700: 05/22 0700 05/21 1900 Intake Total Output Total 440 5 Balance -440 -5 Number 1 Incontinent Voids Output, 40 5 Drainage Output, Urine 400 Patient 118.1 kg 111.364 kg Weight Weight Bed scale Stated/Reported Measurement Method PATIENT WEIGHT: Weight (lb): 260 Weight (oz): 5.85 Weight (kg): 117.934 General appearance: alert, awake, oriented Head/Eyes: atraumatic, normocephalic ENT: normal nose, moist mucosal membranes Neck: full range of motion, non-tender Cardiovascular: regular rate rhythm, normal heart sounds Respiratory: clear to auscultation, aerating well, symmetric expansion GI: soft, non-tender Genitourinary: no bladder distension, no flank pain Extremities: moves all, normal range of motion, normal motor function Musculoskeletal: full range of motion, normal inspection Neuro/BOARD MEMBER: alert, oriented X 3, normal speech, no motor deficits, no sensory deficits Skin: dry, intact, no gross abnormalities, normal color Wound/incision: Location: right neck Site Condition: ecchymosis, incision intact, wound clean dry, no changes in wound, no drainage Psychiatry: normal affect, normal mood Results Findings/Data: Laboratory Tests: 05/22 05/21 05/21 05/21 0324 1658 1538 1110 Chemistry Sodium (134 - 147 mEq/L) 141 144 Potassium (3.4 - 5.0 mEq/L) 4.6 3.7 Chloride (100 - 108 mEq/L) 111 H 113 H Carbon Dioxide (21 - 33 mEq/l) 24 22 Anion Gap (0 - 20) 11 13 BUN (7 - 25 mg/dL) 14 14 Creatinine (0.6 - 1.3 mg/dL) 0.7 0.7 Glomerular Filtr Rate (70 - 80) 87.4 H 87.4 H Glucose (77 - 141 mg/dL) 110 127 POC Glucose (70 - 110 MG/DL) 110 Calcium (8.0 - 10.5 mg/dL) 8.6 8.7 Coagulation Activated Coag Time (74 - 137 SEC) 311 H Hematology WBC (4.5 - 11.0 x10 3/uL) 6.1 RBC (3.54 - 5.02 x10 6/uL) 3.58 Hgb (11.0 - 15.0 g/dL) 10.0 L 10.7 L Hct (33.0 - 45.0 %) 31.5 L 34.0 MCV (81.0 - 99.0 fL) 88.0 MCH (27.0 - 33.0 pg) 27.9 MCHC (33.0 - 37.0 g/dL) 31.7 L RDW (11.5 - 14.5 %) 16.3 H Plt Count (150 - 400 x10 3/uL) 162 MPV (7.0 - 9.0 fL) 9.0 Neut % (Auto) (56.0 - 77.0 %) 82.4 H Lymph % (Auto) (14.0 - 32.0 %) 10.0 L [place] % (Auto) (4.8 - 9.0 %) 6.9 Eos % (Auto) (0.3 - 3.7 %) 0.0 L Baso % (Auto) (0.0 - 2.0 %) 0.0 Neut # (Auto) (2.0 - 7.6 x10 3/uL) 5.03 Lymph # (Auto) (1.0 - 3.8 x10 3/uL) 0.61 L [place] # (Auto) (0.1 - 0.8 x10 3/uL) 0.42 Eos # (Auto) (0.0 - 0.2 x10 3/uL) 0.00 Baso # (Auto) (0.0 - 0.2 x10 3/uL) 0.00 Abs Immat Gran (auto) (0.00 - 0.03 x10 3/uL) 0.04 H Immature Gran % (0.0 - 2.0 %) 0.7 Nucleated RBC % (0 - 0 %) 0.0 Nucleated RBCs # (Man) (0.0 - 0.1 x10 3/uL) 0.00 05/21 1044 Chemistry Sodium (134 - 147 mEq/L) 143 Potassium (3.4 - 5.0 mEq/L) 3.9 Chloride (100 - 108 mEq/L) 109 H Carbon Dioxide (21 - 33 mEq/l) 27 Anion Gap (0 - 20) 11 BUN (7 - 25 mg/dL) 14 Creatinine (0.6 - 1.3 mg/dL) 0.8 Glomerular Filtr Rate (70 - 80) 74.4 Glucose (77 - 141 mg/dL) 98 Calcium (8.0 - 10.5 mg/dL) 9.5 Total Bilirubin (0.0 - 1.0 mg/dL) 0.90 AST (8 - 34 IUnit/L) 24 ALT (10 - 49 IUnit/L) 14 Total Alk Phosphatase (20 - 125 IUnit/L) 46 Total Protein (6.4 - 8.2 g/dL) 6.9 Albumin (3.4 - 5.0 g/dL) 3.50 Triglycerides (40 - 150 mg/dL) 143 Cholesterol (<200 mg/dL) 177 LDL Cholesterol Measurd (0 - 100 mg/dL) 92.0 HDL Cholesterol (40 - 60 MG/DL) 67.1 H Cholesterol/HDL Ratio (3.27 - 4.44 RATIO) 2.64 L Coagulation INR (0.8 - 1.2) 1.0 PT Patient/Control Mix (9.3 - 12.9 SECONDS) 11.5 Hematology WBC (4.5 - 11.0 x10 3/uL) 4.2 L RBC (3.54 - 5.02 x10 6/uL) 4.25 Hgb (11.0 - 15.0 g/dL) 11.9 Hct (33.0 - 45.0 %) 37.9 MCV (81.0 - 99.0 fL) 89.2 MCH (27.0 - 33.0 pg) 28.0 MCHC (33.0 - 37.0 g/dL) 31.4 L RDW (11.5 - 14.5 %) 16.4 H Plt Count (150 - 400 x10 3/uL) 181 MPV (7.0 - 9.0 fL) 8.9 Neut % (Auto) (56.0 - 77.0 %) 57.1 Lymph % (Auto) (14.0 - 32.0 %) 27.6 [place] % (Auto) (4.8 - 9.0 %) 13.8 H Eos % (Auto) (0.3 - 3.7 %) 0.5 Baso % (Auto) (0.0 - 2.0 %) 0.5 Neut # (Auto) (2.0 - 7.6 x10 3/uL) 2.40 Lymph # (Auto) (1.0 - 3.8 x10 3/uL) 1.16 [place] # (Auto) (0.1 - 0.8 x10 3/uL) 0.58 Eos # (Auto) (0.0 - 0.2 x10 3/uL) 0.02 Baso # (Auto) (0.0 - 0.2 x10 3/uL) 0.02 Abs Immat Gran (auto) (0.00 - 0.03 x10 3/uL) 0.02 Immature Gran % (0.0 - 2.0 %) 0.5 Nucleated RBC % (0 - 0 %) 0.0 Nucleated RBCs # (Man) (0.0 - 0.1 x10 3/uL) 0.00 Radiology data: Recent Impressions: RADIOLOGY - XR CHEST 1 V 05/21 1023 Report Impression - Status: SIGNED Entered: 05/21/2024 1139 IMPRESSION: No acute pulmonary process. Impression By: Melissa Traore M.D. Results: labs reviewed, vital signs reviewed, vital signs stable, rhythm personally rev'd, current med profile rev'd Treatments Procedures Lab: Chemistry last 24 hrs: 05/22 05/21 05/21 0324 1658 1044 Chemistry Sodium (134 - 147 mEq/L) 141 144 143 Potassium (3.4 - 5.0 mEq/L) 4.6 3.7 3.9 Chloride (100 - 108 mEq/L) 111 H 113 H 109 H BUN (7 - 25 mg/dL) 14 14 14 Creatinine (0.6 - 1.3 mg/dL) 0.7 0.7 0.8 Glucose (77 - 141 mg/dL) 110 127 98 AST (8 - 34 IUnit/L) 24 ALT (10 - 49 IUnit/L) 14 Chemistry last 24 hrs: 05/21 1044 Chemistry Triglycerides (40 - 150 mg/dL) 143 Cholesterol (<200 mg/dL) 177 HDL Cholesterol (40 - 60 MG/DL) 67.1 H Hematology last 24 hrs: 05/22 05/21 05/21 0324 1658 1044 Hematology WBC (4.5 - 11.0 x10 3/uL) 6.1 4.2 L Hgb (11.0 - 15.0 g/dL) 10.0 L 10.7 L 11.9 Hct (33.0 - 45.0 %) 31.5 L 34.0 37.9 Plt Count (150 - 400 x10 3/uL) 162 181 Neut % (Auto) (56.0 - 77.0 %) 82.4 H 57.1 Coagulation last 24 hrs: 05/21 1044 Coagulation INR (0.8 - 1.2) 1.0 Imaging: Recent Impressions: RADIOLOGY - XR CHEST 1 V 05/21 1023 Report Impression - Status: SIGNED Entered: 05/21/2024 1139 IMPRESSION: No acute pulmonary process. Impression By: BenjaminRKJailene Traore M.D. Discharge Instructions PCP PCP: PCP: No Primary or Family Physician )( Discharge to: Home/Self Care Discharge Instructions Additional Discharge Routines: PCP Follow-Up, Smelting Engineer Follow-Up, Wound/ Dressing Care )( Diet: Cardiac )( Activity: As Tolerated, No Driving, No Lifting >10lbs )( Wound/dressing care: Clean wound daily, Do not submerge incision, Leave dressing in place, OK to shower tomorrow )( Notify PCP of these S/S: Chest Pain, Increased redness, Increased swelling, Increased tenderness/pain, Moderate/large bleeding, Numbness, Pus-like discharge , Red line from wound, Shortness of breath, Temp. 101 or greater Follow-up Appointments PCP follow up: PCP: No Primary or Family Physician PCP follow up timeframe: In 1-2 weeks Quality: Discharge Advanced Care Plan 65 or Older Discussed with: patient Current Medications Current medication review: I attest that the foregoing medication list in the medical record is true, accurate, and complete to the best of my knowledge. at [address] [place] [address] #:[phone] [facility] 2024-05-21 18:47:00 [facility] ([facility]) Critical Care Consult Note REPORT#:[id number] REPORT STATUS: Signed REPORT INITIALIZATION DATE:05/21/24 TIME: 1846 PATIENT: ARTHUR PENALOZA UNIT #: [id number] ROOM/BED: [facility]-1 : 43 AGE: 78 SEX: F ATTEND: Antonia Mims MD ADM AUTHOR: Mustapha Carlisle MD REPT SERVICE DT/TIME: 05/21/241846 * ALL edits or amendments must be made on the electronic/computer document * History of Present Illness HPI Requesting clinician: CVTS Reason for consult: post CEA managment Chief complaint: Dyspnea on exertion PCP: PCP: No Primary or Family Physician HPI: 78-year-old female with significant past med history of hyperlipidemia hypertension history of RA history of breast cancer status post chemoradiation history of prior DVTs on Xarelto who is being worked up for dyspnea on exertion. Echocardiography showed preserved ejection fraction with some moderate valvular disease but carotid ultrasound showed a right internal carotid artery stenosis 90% with 70% distally and 30% on the left. Today she was admitted electively for right carotid endarterectomy which was performed earlier today no complications. Patient was extubated in the operating room and brought up to the CCU. Patient seen and evaluated on arrival to CCU patient is awake alert area is clean and dry patient does have a chronic cough that the family is concerned she may be aspirating because it worsens every time she eats. Pain is well- controlled hemodynamically stable History - Adult longitudinal Past medical history: Reports: Arthritis, Cancer, Coronary artery disease, Hypertension, Anticoagulant therapy, Dyslipidemia. Additional medical history: DVT x 2 left leg Toyed arthritis Past surgical history: Reports: Breast biopsy/procedure. Alcohol use: Denies EtOH use Drug use: Denies recreational drugs Smoking status for patients 13 years old or older: Never Smoker Allergies: Coded Allergies: No Known Allergies (05/19/24) Review of Systems ROS Constitutional: Denies: chills, fatigue, fever, generalized weakness, malaise. Skin: Denies: bruising, contusion, ecchymosis. Allergy/Immun: Denies: anaphylaxis, hives. Eyes: Reports: discharge. Denies: itching, photophobia. ENT: Denies: earache, mouth pain, sore throat. Respiratory: Reports: BONNER (dyspnea on exertion), non productive cough. Cardiovascular: Reports: BONNER (dyspnea on exertion). GI: Denies: diarrhea, hematemesis, nausea. : Denies: hematuria, . Heme: Denies: adenopathy, bruising. Endocrine: Denies: heat intolerance, polyuria. Neuro: Denies: change in LOC, gait problem. All systems rev neg: except as marked Objective Physical Exam VS/I O: Last Documented: Result Date Time Pulse Ox 98 05/21 1745 B/P 145/05/21 B/P Mean 101 05/21 1745 Pulse 95 05/21 1745 Resp 21 05/21 1745 O2 Delivery Simple mask 05/21 1655 O2 Flow Rate 5 05/21 1655 Temp 97.6 05/21 1640 Patient Weight and BMI Weight (kg): 111.364 BMI: 43.5 Medications: Active Meds + DC'd Last 24 Hrs Aspirin (ASPIRIN) 81 MG DAILY PO Clopidogrel Bisulfate (Plavix) 75 MG DAILY PO (PEND) Folic Acid (FOLIC ACID) 1 MG DAILY PO Furosemide (LASIX) 60 MG DAILY PO (PEND) Omeprazole (PRILOSEC (NF)) 40 MG DAILY PO (PEND) Valsartan (DIOVAN) 40 MG DAILY PO Levothyroxine Sodium (Synthroid) 88 MCG DAILY@0600 PO Atorvastatin Calcium (LIPITOR) 20 MG DAILY@2100 PO Docusate Sodium (COLACE) 100 MG BID PO Famotidine (PEPCID) 40 MG BEDTIME PO Hydroxychloroquine Sulfate (PlaqueniL) 200 MG BID PO Mupirocin (BACTROBAN 2% 22 GM OINTMENT) 1 APPLIC BID NASAL Potassium Chloride (POTASSIUM CHLORIDE 20MEQ TAB.ER) 20 MEQ BEDTIME PO Fentanyl Citrate (SUBLIMAZE) 100 MCG PACU Q10MIN PRN PRN IV (DC) Fentanyl Citrate (SUBLIMAZE) 50 MCG PACU Q10MIN PRN PRN IV (DC) Hydralazine HCl (APRESOLINE) 5 MG PACU Q10MIN PRN PRN IV (DC) Hydromorphone HCl (DILAUDID) 1 MG PACU Q10MIN PRN PRN IV (DC) Hydromorphone HCl (DILAUDID) 0.5 MG PACU Q5MIN PRN PRN IV (DC) Insulin Human Lispro (HUMALOG) 0 PACU ONCE PRN SUBQ (DC) Labetalol HCl (labetalol 100 mg/20 mL Inj) 5 MG PACU Q10MIN PRN PRN IV ( DC) Meperidine HCl (MEPERIDINE HCL/PF) 12.5 MG PACU ONCE PRN IV (DC) Morphine Sulfate (morphine SULFATE) 2 MG PACU Q10MIN PRN PRN IV (DC) Ropivacaine (NAROPIN 0.5% 150 MG/30mL) 150 MG ASDIR PRN LOCAL (DC) Fentanyl Citrate (SUBLIMAZE) 0 .STK-MED ONE .ROUTE (DC) Protamine Sulfate (PROTAMINE SULFATE) 0 .STK-MED ONE IV (DC) Acetaminophen (TYLENOL) 650 MG Q4H PRN PRN PO Acetaminophen (TYLENOL) 650 MG Q4H PRN PRN PO Bisacodyl (DULCOLAX) 10 MG DAILY PRN PRN RECTAL Hydralazine HCl (APRESOLINE) 10 MG Q6H PRN PRN IV Magnesium Hydroxide (MILK OF MAGNESIA) 30 ML Q6H PRN PRN PO Methotrexate (METHOTREXATE) 2.5 MG We@0900 PO Ondansetron HCl (ZOFRAN) 4 MG Q6H PRN PRN IV Fentanyl Citrate (SUBLIMAZE) 0 .STK-MED ONE .ROUTE (DC) Propofol (DIPRIVAN 200MG/20ML INJECTION) 20 ML .STK-MED ONE IV (DC) Cefazolin Sodium (KEFZOL OR ANCEF) 0 .STK-MED ONE .ROUTE (DC) Sevoflurane (ULTANE) 0 .STK-MED ONE INH (DC) Lidocaine HCl (XYLOCAINE) 0 .STK-MED ONE .ROUTE (DC) Sodium Chloride (SODIUM CHLORIDE 0.9%) 50 ML .STK-MED ONE IV (DC) Dexamethasone Sodium Phosphate (DECADRON) 0 .STK-MED ONE .ROUTE (DC) Heparin Sodium (HEPARIN SODIUM) 0 .STK-MED ONE .ROUTE (DC) Ondansetron HCl (ZOFRAN) 0 .STK-MED ONE .ROUTE (DC) Rocuronium [place] (ZEMURON) 0 .STK-MED ONE IV (DC) Nitroglycerin/Dextrose (NITROGLYCERIN 50,000MCG/D5W 250ML) 250 ML .STK-MED ONE IV (DC) Norepinephrine Bitartrate (NOREPINEPHRINE 8 MG/NS 250 ML) 250 ML .STK-MED ONE IV (DC) Heparin Sodium (HEPARIN SODIUM) 0 .STK-MED ONE .ROUTE (DC) Lidocaine HCl (XYLOCAINE IV) 0 .STK-MED ONE IV (DC) Thrombin (RECOTHROM) 0 .STK-MED ONE TOPICAL (DC) Lidocaine HCl (XYLOCAINE) 0 .STK-MED ONE .ROUTE (DC) Sodium Chloride (SODIUM CHLORIDE 0.9%) 100 ML ASDIR PRN IV Sodium Chloride (SODIUM CHLORIDE 0.9%) 100 ML ASDIR PRN IV General appearance: alert, awake, oriented, no acute distress, conversational Head/Eyes: EOMI, PERRLA ENT: moist mucosal membranes Neck: non-tender, no JVD Cardiovascular: normal capillary refill, normal heart sounds, regular rate and rhythm Respiratory: aerating well, clear to auscultation, symmetric expansion, no distress Abdomen: obese, soft, non-tender, no distention, no guarding Extremities: moves all, normal capillary refill Neuro/BOARD MEMBER: alert, oriented X 3, CNII-XII intact, normal speech, no motor deficits, no sensory deficits Wound/incision: Location: R neck Site condition: dressing clean dry Results Findings/Data: Laboratory Tests 05/21/24 1658: [Embedded Image Not Available] 05/21/24 1044: [Embedded Image Not Available] Laboratory Tests 05/21 05/21 05/21 1658 1110 1044 Chemistry Sodium (134 - 147 mEq/L) 144 143 Potassium (3.4 - 5.0 mEq/L) 3.7 3.9 Chloride (100 - 108 mEq/L) 113 H 109 H Carbon Dioxide (21 - 33 mEq/l) 22 27 Anion Gap (0 - 20) 13 11 BUN (7 - 25 mg/dL) 14 14 Creatinine (0.6 - 1.3 mg/dL) 0.7 0.8 Glomerular Filtr Rate (70 - 80) 87.4 H 74.4 Glucose (77 - 141 mg/dL) 127 98 POC Glucose (70 - 110 MG/DL) 110 Calcium (8.0 - 10.5 mg/dL) 8.7 9.5 Total Bilirubin (0.0 - 1.0 mg/dL) 0.90 AST (8 - 34 IUnit/L) 24 ALT (10 - 49 IUnit/L) 14 Total Alk Phosphatase (20 - 125 IUnit/L) 46 Total Protein (6.4 - 8.2 g/dL) 6.9 Albumin (3.4 - 5.0 g/dL) 3.50 Triglycerides (40 - 150 mg/dL) 143 Cholesterol (<200 mg/dL) 177 LDL Cholesterol Measurd (0 - 100 mg/dL) 92.0 HDL Cholesterol (40 - 60 MG/DL) 67.1 H Cholesterol/HDL Ratio (3.27 - 4.44 RATIO) 2.64 L Laboratory Tests 05/21 05/21 1538 1044 Coagulation INR (0.8 - 1.2) 1.0 PT Patient/Control Mix (9.3 - 12.9 SECONDS) 11.5 Activated Coag Time (74 - 137 SEC) 311 H Laboratory Tests 05/21 05/21 1658 1044 Hematology WBC (4.5 - 11.0 x10 3/uL) 4.2 L RBC (3.54 - 5.02 x10 6/uL) 4.25 Hgb (11.0 - 15.0 g/dL) 10.7 L 11.9 Hct (33.0 - 45.0 %) 34.0 37.9 MCV (81.0 - 99.0 fL) 89.2 MCH (27.0 - 33.0 pg) 28.0 MCHC (33.0 - 37.0 g/dL) 31.4 L RDW (11.5 - 14.5 %) 16.4 H Plt Count (150 - 400 x10 3/uL) 181 MPV (7.0 - 9.0 fL) 8.9 Neut % (Auto) (56.0 - 77.0 %) 57.1 Lymph % (Auto) (14.0 - 32.0 %) 27.6 [place] % (Auto) (4.8 - 9.0 %) 13.8 H Eos % (Auto) (0.3 - 3.7 %) 0.5 Baso % (Auto) (0.0 - 2.0 %) 0.5 Neut # (Auto) (2.0 - 7.6 x10 3/uL) 2.40 Lymph # (Auto) (1.0 - 3.8 x10 3/uL) 1.16 [place] # (Auto) (0.1 - 0.8 x10 3/uL) 0.58 Eos # (Auto) (0.0 - 0.2 x10 3/uL) 0.02 Baso # (Auto) (0.0 - 0.2 x10 3/uL) 0.02 Abs Immat Gran (auto) (0.00 - 0.03 x10 3/uL) 0.02 Immature Gran % (0.0 - 2.0 %) 0.5 Nucleated RBC % (0 - 0 %) 0.0 Nucleated RBCs # (Man) (0.0 - 0.1 x10 3/uL) 0.00 Microbiology: 05/21 104 NASAL: MSSA Surveillance Screen - RECD 05/21 104 NASAL: MRSA DNA Surveillance Screen - RECD 05/21 0500 Urine: Urine Culture - COLB Radiology data: Recent Impressions: RADIOLOGY - XR CHEST 1 V 05/21 1023 Report Impression - Status: SIGNED Entered: 05/21/2024 1139 IMPRESSION: No acute pulmonary process. Impression By: Melissa Traore M.D. Diagnosis, Assessment Plan Diagnosis, Assessment Plan Problem list/A P: 1. Carotid artery stenosis, unilateral 2. Hx of deep venous thrombosis 3. HX: breast cancer 4. HLD (hyperlipidemia) 5. HTN (hypertension) 6. S/P carotid endarterectomy Critical care time: Minutes: 45 Free text DxA P: 78-year-old female with significant Struve hypertension hyperlipidemia rheumatoid arthritis and prior history of breast cancer and DVT who presents for elective carotid endarterectomy. Assessment Right carotid artery stenosis Status post carotid enterectomy History of breast cancer History of DVT Hypertension Hyperlipidemia Plan Admitted to the CCU Close neurologic respiratory metabolic and hemodynamic monitoring Continue telemetry Close neurological monitoring Close monitoring of surgical site for any active bleeding or hematoma Advance diet as tolerated Multimodal pain control Restart systemic anticoagulation when cleared by primary service Transfuse for hemoglobin less than 7 or active bleeding Perioperative biotics per primary service Restart home medications as able. at 1856 [facility] #:[id number] [facility] 2024-05-21 16:16:00 [id number] [place] [address] PATIENT NAME: ARTHUR PENALOZA ADMIT DATE: 05/21/24 ACCOUNT NO: [id number] ROOM NO: [id number] AGE: 78 REPORT TYPE: OPERATIVE REPORT SEX: F ADMITTING PHYSICIAN:Antonia Mims MD ATTENDING PHYSICIAN:Antonia Mims MD OPERATION DATE: 05/21/2024 PREOPERATIVE DIAGNOSIS: Severe right internal carotid artery stenosis. POSTOPERATIVE DIAGNOSIS: Severe right internal carotid artery stenosis. OPERATION: Right carotid endarterectomy. SURGEON: Chelsea Mims MD. CHEMICAL ETCHING PROCESSOR: Daniel Montero. ANESTHESIOLOGIST: Dr. Joe. ANESTHESIA: General endotracheal anesthesia. ESTIMATED BLOOD LOSS: 20 mL. INDICATIONS: Ms. Penaloza is an 78-year-old female with severe right internal carotid artery stenosis. After due preop counseling, she was brought to the operating room today for right carotid endarterectomy. FINDINGS: 1. Heavily calcified plaque in the right common carotid artery extending into the right internal carotid artery leading to a pinhole opening in the right internal carotid artery. 2. Following endarterectomy there was a good endpoint in the right internal carotid artery. 3. Right hypoglossal nerve was identified and protected all throughout the case. 4. The patient was moving all extremities and the tongue was in midline following extubation. DESCRIPTION OF PROCEDURE: Ms. Penaloza was identified in the preoperative holding area and brought to the operating room and placed supine on the operating table. After induction of general endotracheal anesthesia, antibiotics were placed. The patient's right side of the neck was prepped and draped in standard surgical fashion. A 4-cm incision was made along the anterior border of middle third right sternocleidomastoid. Platysma divided with Bovie cautery. The deep fascia was opened and the right sternocleidomastoid muscle was retracted laterally. The facial vein was identified, dissected isolated, ligated, and divided. Next, the carotid fascia was opened in the right internal carotid artery, external carotid artery, common carotid artery were identified and PATIENT NAME: ARTHUR PENALOZA dissected. The patient was heparinized to keep ACT more than 250. Next, the bifurcation of the right common carotid artery was isolated with 3 profunda clamp. Arteriotomy was performed along the long axis of the right common carotid artery. This was extended onto the right internal carotid artery using Mead scissors. The patient had good backbleeding from the right internal carotid artery and cerebral oximetry remained unchanged on the right side and hence I did not use a shunt. Next endarterectomy of right common and internal carotid artery was performed using a [place]a dissector, endarterectomy of the right external carotid artery was performed using eversion technique. There was a good endpoint in the right internal carotid artery following endarterectomy. The artery was then irrigated with 20 mL of heparinized saline. Patch repair of the right common and internal carotid artery was performed using Bovine pericardial patch and 6-0 Prolene suture. Careful de-aeration was performed prior to tying the patch down. A 10 YULIA was placed in the neck. Hemostasis was confirmed and the incision was closed in layers using 2-0 Vicryl for platysma and 4-0 Vicryl for skin. The patient was extubated in the operating room and moved to PACU in stable condition. Dictated By: Chelsea Mims MD Date Dictated: 05/21/2024 16:16:22 Date Transcribed: 05/21/2024 20:43:37 /[facility]/MICHAELA Receipt ID: [id number] Authenticated by Antonia Mims MD On 05/25/2024 10:15:42 AM at 1015 PATIENT NAME: ARTHUR PE[address]ZA [facility] 2024-05-21 16:10:00 [facility] ([facility]) Brief Op Note REPORT#:[id number] REPORT STATUS: Signed REPORT INITIALIZATION DATE:05/21/24 TIME: 1609 PATIENT: ARTHUR PENALOZA UNIT #: [id number] ROOM/BED: [place] [id number] : 43 AGE: 78 SEX: F ATTEND: Antonia Mims MD ADM AUTHOR: Antonia Mims MD REPT SERVICE DT/TIME: 05/21/24 1610 * ALL edits or amendments must be made on the electronic/computer document * Op/Inv Proc Note - Brief Pre-procedure diagnosis: Rt ICA stenosis Post-procedure diagnosis: same as pre procedure dx Procedures performed: Right CEA Primary Surgeon: Prasanna Liner Roll Changer(s): Daniel Montero Findings: Heavily calcified plaque Complications: none Estimated blood loss in ml's: 20 cc Specimens removed/altered: Plaque at 1611 RPT #:[id number] [facility] 2024-05-21 10:34:00 [id number] [address] PATIENT NAME: ARTHUR PENALOZA ADMIT DATE: 05/21/24 ACCOUNT NO: [id number] ROOM NO: [facility] AGE: 78 REPORT TYPE: eELECTROCARDIOGRAM REPORT SEX: F ADMITTING PHYSICIAN:Antonia Mims MD ATTENDING PHYSICIAN:Antonia Mims MD Order: [id number] Test Reason : PREOP Test Date/Time Stamp: SunMay 21 2024 10:34:30 Blood Pressure : / mmHG Vent. Rate : 081 BPM Atrial Rate : 081 BPM P-R Int : 174 ms QRS Dur : 092 ms QT Int : 414 ms P-R-T Axes : 059 -42 031 degrees QTc Int : 480 ms Normal sinus rhythm Left axis deviation Abnormal ECG No previous ECGs available Confirmed by LEW HERBERT MD ([id number]) on 05/21/2024 12:22:11 PM Referred By: Antonia Mims Confirmed by:FRANTZ HERBERT MD at 1222 PATIENT NAME: ARTHUR PENALOZA [facility] 2024-05-21 10:31:00 [facility] ([facility]) History Physical - Adult REPORT#:[id number] REPORT STATUS: Signed REPORT INITIALIZATION DATE:05/21/24 TIME: 1031 PATIENT: ARTHUR PENALOZA UNIT #: [id number] ROOM/BED: [place] [address] : 43 AGE: 78 SEX: F ATTEND: Antonia Mims MD ADM AUTHOR: Renate Akers VALVE SETTER REPT SERVICE DT/TIME: 05/21/24 1031 * ALL edits or amendments must be made on the electronic/computer document * Renate Akers 05/21/24 1031: History of Present Illness HPI Chief complaint: carotid artery stenosis PCP: PCP: No Primary or Family Physician HPI: This is a pleasant 78-year-old female with a past medical history of hypertension, hyperlipidemia, rheumatoid arthritis, bilateral breast cancer in which she was treated with chemo and radiation as well as bilateral lumpectomy, DVT x 2 and left leg, and per patient clot in right shoulder. Patient is on lifelong Xarelto. Patient was undergoing routine cardiology workup for significant dyspnea on exertion. Chest x-ray shows no acute abnormality. Echocardiogram shows EF 60%, trace mitral regurgitation, and trace tricuspid regurgitation. Coronary angiogram and carotid angiogram done that shows mild to moderate CAD, and severely calcified right common carotid artery with 90% stenosis extending into the right internal carotid artery which has 70% stenosis. Left common carotid artery is normal, left internal carotid artery has 30% stenosis. Patient is being admitted today for right carotid endarterectomy. History Past medical history: Reports: Arthritis, Cancer, Coronary artery disease, Hypertension, Anticoagulant therapy, Dyslipidemia. Additional medical history: DVT x 2 left leg Toyed arthritis Past surgical history: Reports: Breast biopsy/procedure. Alcohol use: Denies EtOH use Drug use: Denies recreational drugs Smoking status for patients 13 years old or older: Never Smoker Medication/Allergy-Vaccine Hx Medications: Home Medications: Medication Dose/Rte/Freq Days Qty Entered Last Max Daily Dose Reviewed RIVAROXABAN (XARELTO) 20 MG PO BEDTIME 05/19/24 Strength: 20 MG TAB 1337 LEVOTHYROXINE 88 MCG PO DAILY 05/19/24 (SYNTHROID) 1337 Strength: 88 MCG TAB FUROSEMIDE (LASIX) 60 MG PO DAILY 05/19/24 Strength: 20 MG TAB 1338 VALSARTAN (DIOVAN) 40 MG PO DAILY 05/19/24 Strength: 40 MG TAB 1338 ROSUVASTATIN 10 MG PO DAILY 05/19/24 Strength: 10 MG TAB 1339 RISEDRONATE (ACTONEL) 150 MG PO Q30D 05/19/24 Strength: 150 MG TAB 1340 FAMOTIDINE (PEPCID) 40 MG PO BEDTIME 05/19/24 Strength: 40 MG TAB 1340 OMEPRAZOLE ER (PriLOSEC) 40 MG PO DAILY 05/19/24 Strength: 40 MG CAP.DR 1340 HYDROXYCHLOROQUINE 200 MG PO BID 05/19/24 SULFATE 1341 (PLAQUENIL) Strength: 200 MG TAB POTASSIUM CHLORIDE ER 20 MEQ PO BEDTIME 05/19/24 (KLOR-CON M20) 1342 Strength: 20 MEQ TAB.SR FOLIC ACID 1 MG PO DAILY 05/19/24 Strength: 1 MG TAB 1342 METHOTREXATE 2.5 MG PO 05/19/24 (RHEUMATREX) QWEDNESDAY 1343 Strength: 2.5 MG TAB CERTOLIZUMAB PEGOL 800 MG SUBQ Q28D 05/19/24 (CIMZIA) 1345 Strength: 400 MG/2 ML (200 MG/ML X 2) DISP.SYRIN Current Hospital Medications: Electrolytic, Caloric, And Marta Sig/Farzana Start time Last Medication Dose Route Stop Time Status Admin Sodium Chloride 100 ML ASDIR PRN 05/21 0500 AC (SODIUM CHLORIDE IV 05/22 1723 0.9%) Sodium Chloride 100 ML ASDIR PRN 05/21 0500 AC (SODIUM CHLORIDE IV 05/22 1723 0.9%) Allergies: Coded Allergies: No Known Allergies (05/19/24) Pt reports no significant: family history Review of Systems Constitutional: Reports: generalized weakness. Denies: chills, fever. Skin: Denies: abrasion, contusion, diaphoresis. Allergy/Immun: Denies: allergic reaction, anaphylaxis, itching. Eyes: Denies: redness, discharge, diplopia. ENT: Denies: ear drainage, ear ringing, tongue pain. Respiratory: Reports: BONNER (dyspnea on exertion). Denies: pneumonia. Cardiovascular: Denies: chest pain, palpitations. GI: Denies: abdominal pain, nausea, vomiting. : Denies: dysuria, flank pain. Heme: Denies: adenopathy, bleeding. Endocrine: Denies: cold intolerance, heat intolerance, polydipsia. Neuro: Denies: confusion, dizziness, seizure, syncope. All systems rev neg: except as marked Physical Exam VS/I O PATIENT WEIGHT: Weight (lb): Weight (oz): Weight (kg): General appearance: alert, awake, oriented Head/Eyes: atraumatic, normocephalic ENT: moist mucosal membranes Neck: full range of motion, non-tender Cardiovascular: regular rate rhythm, normal heart sounds Respiratory: aerating well, symmetric expansion Abdomen/GI: active bowel sounds, soft, non-tender Genitourinary: no bladder distention Extremities: moves all, normal capillary refill Musculoskeletal: full range of motion, normal inspection Neuro/BOARD MEMBER: alert, oriented X 3 Skin: dry, intact, no gross abnormalities Psychiatry: normal affect, normal mood Results Results: labs reviewed, vital signs reviewed, vital signs stable, rhythm personally rev'd, current med profile rev'd Treatment Prophylaxis Treatment Prophylaxis CVC/PICC documentation: The data below has been imported from nursing documentation. Any exceptions have been noted below under Provider comments. CVC/PICC insertion date/time: Provider comments on imported nursing data: [] Diagnosis, Assessment Plan Plan discussed with: patient, admitting physician, collaborating MD, primary care physician Code Status/Resusc. Discussion Resuscitation discussion: Discussed with: patient Code status: full code Free Text DxA P Notes Free Text DxA P Notes: This is a pleasant 78-year-old female with a past medical history of hypertension, hyperlipidemia, rheumatoid arthritis, bilateral breast cancer in which she was treated with chemo and radiation as well as bilateral lumpectomy, DVT x 2 and left leg, and per patient clot in right shoulder. Patient is on lifelong Xarelto. Patient was undergoing routine cardiology workup for significant dyspnea on exertion. Chest x-ray shows no acute abnormality. Echocardiogram shows EF 60%, trace mitral regurgitation, and trace tricuspid regurgitation. Coronary angiogram and carotid angiogram done that shows mild to moderate CAD, and severely calcified right common carotid artery with 90% stenosis extending into the right internal carotid artery which has 70% stenosis. Left common carotid artery is normal, left internal carotid artery has 30% stenosis. Patient is being admitted today for right carotid endarterectomy. Assessment/plan: 1. Dyspnea 2. Severe right carotid artery stenosis 3. Hypertension 4. Hyperlipidemia 5. History of rheumatoid arthritis 6. History of breast cancer 7. History of DVT Patient seen and examined by Dr. Mims. Carotid angiogram findings reviewed and results discussed with patient and her daughter. Dr. Mims has discussed in detail to the patient the need for right carotid endarterectomy and explained the operation, risks involved including stroke, benefits, alternatives, and complications. Patient acknowledges understanding and is agreeable to proceed with surgery. The patient's questions were answered and consent is obtained. Patient is being admitted today for right carotid endarterectomy. Admit to CCU postoperatively Monitor neurochecks Critical care consulted Quality: Gen Med Crit Care Current Medications Current medication review: I attest that the foregoing medication list in the medical record is true, accurate, and complete to the best of my knowledge. Advanced Care Plan 65 or Older Discussed with: patient Antonia Mims 05/21/24 9514: Attestations Physician Attestation Agree w/findings plan: I have seen and examined Ms. Penaloza. I agree with the findings and plan as documented by ALEX Valiente. Briefly, 78-year-old female with severe right middle carotid artery stenosis being admitted to the hospital today for right carotid endarterectomy. I have explained to her the procedure, risk involved, benefit, alternative, and complications. Patient verbalized understanding the risk and has consented for surgery. at 1041 at 2726 [facility] #:[id number] END OF REPORT [facility]
[2024-05-31 11:23] LABS: Specific Gravity 1.005 (1.005-1.030); Sqamous Epithelial <5 /HPF (None Seen); Urine Bacteria <20 /HPF (<20); Urine Bilirubin NEGATIVE (Negative); Urine Blood Negative (Negative); Urine Clarity Turbid (Clear); Urine Color Colorless (Yellow); Urine Culture Reflex Order NOT NEEDED; Urine Glucose NEGATIVE (Negative); Urine Ketones NEGATIVE (Negative); Urine Micro Reflex YN NO BILL MICROSCOPIC; Urine Nitrite NEGATIVE (Negative); Urine Protein NEGATIVE (Negative); Urine RBC None Seen /HPF (None Seen); Urine Urobilinogen Normal (Normal); Urine WBC <5 /HPF (<5); Urine pH 6.5 (5.0-7.0)
--- NOTE | 2024-05-31 11:37 | RAD REPORT ---
EXAM: CT brain without contrast HISTORY: L sided facial droop several days COMPARISON: None TECHNIQUE: Multiple contiguous axial images were obtained and a CT of the brain without contrast. Sag ittal and coronal reformats were performed. One or more of the following dose reduction techniques were used: Automated exposure control, adjust ment of the mA and/or kV according to patient size, and/or iterative reconstruction. FINDINGS: No evidence of hydrocephalus, intracranial hemorrhage, or extra-axial fluid collection. Moderate brain atrophy with moderate periventricular and deep white matter chronic microvascular isc hemic changes present. No evidence of midline shift or areas of brain edema. The calvarium is intact. The visualized paranasal sinuses and mastoid air cells are essentially clear . IMPRESSION: No evidence of acute intracranial abnormality.
--- NOTE | 2024-05-31 11:44 | RAD REPORT ---
EXAMINATION: CTA HEAD CLINICAL INDICATION: L sided facial droop several days TECHNIQUE: Axial CT images were obtained through the head after intravenous contrast utilizing angiog raphic protocol with 3D post-processing (maximum intensity projection images, volume rendered images and/or shaded surface rendered images). One or more of the following dose reduction technique s were used: Automated exposure control, adjustment of the mA and/or kV according to patient size, and/or iterative reconstruction. Unless otherwise specified, incidental findings do not require dedic ated imaging follow-up. COMPARISON: No prior exam. FINDINGS: ICA: The petrous, cavernous, and supraclinoid segments of the bilateral internal carotid arteries are normal. The ophthalmic artery origins are visualized and normal. The posterior communicating arteries are patent. SHERRI: Anterior cerebral arteries are normal bilaterally. The anterior communicating artery is patent. MCA: Middle cerebral arteries are normal bilaterally. BRANCH COORDINATOR: Posterior cerebral arteries are normal bilaterally. Vertebrobasilar: The vertebral arteries are patent. The basilar artery is normal in appearance. 3D images confirm these findings. IMPRESSION: No significant flow abnormality is identified.
--- NOTE | 2024-05-31 11:47 | RAD REPORT ---
EXAMINATION: CTA NECK CLINICAL INDICATION: L sided facial droop several days TECHNIQUE: Axial CT images were obtained from the aortic arch to the skull base after intravenous con trast utilizing angiographic protocol with 3D post-processing (maximum intensity projection images, volume rendered images and/or shaded surface rendered images). One or more of the following dose redu ction techniques were used: Automated exposure control, adjustment of the mA and/or kV according to patient size, and/or iterative reconstruction. Unless otherwise specified, incidental findings do not require dedicated imaging follow-up. COMPARISON: No prior exam. FINDINGS: AORTA: The imaged aortic arch is normal. CCA: The common carotid arteries are patent and normal in caliber. ICA/ECA: There is a large amount of hard plaquing present at the left carotid bifurcation. Left carot id bulb demonstrates stenosis of 70-80%. Right ICA is focally tortuous. VERTEBRAL: The cervical vertebral arteries are patent. The vertebral arteries are codominant. SOFT TISSUE: No significant neck soft tissue abnormalities. The visualized lung apices are clear. 3D images confirm these findings. IMPRESSION: There is a large amount of calcified plaque involving the left carotid bifurcation. This results in s evere stenosis carotid bulb estimated at 80%. NASCET criteria used. Mild 0-49% stenosis Moderate 50-69% stenosis Severe 70-99% stenosis
[2024-05-31 13:20] LABS: Absolute Lymphocytes (CBC) 0.6 K/uL (0.7-4.9); Absolute Monocytes 0.6 K/uL (0.1-1.3); Absolute Neutrophil 2.7 K/uL (1.8-8.0); Basophils % 0.8 % (0-1.3); Eosinophils % 0.3 % (0-4.4); Hematocrit 38.1 % (36.0-45.0); Lymphocytes % 14.9 % (15.3-44.8); MCH 28.3 pg (27.0-35.0); MCHC 31.5 g/dL (32.0-36.0); MCV 89.6 fL (80-100); MPV 7.2 fL (7.6-11.3); Monocytes % 15.6 % (3.3-12.3); Neutrophils % 68.4 % (41.7-73.7); Platelets 233 thou/uL (152-406); RBC Red Blood Cell Count 4.25 M/uL (3.86-4.86); Red Cell Distribution Width 17.9 % (12.1-15.2)
[2024-05-31 13:26] LABS: PTT, Activated Partial Thromb 35.7 SECONDS (24.3-36.9); Protime INR 1.54
[2024-05-31 13:34] LABS: Anion Gap 8.4 mEq/L (5.0-15.0); Potassium 3.4 mEq/L (3.5-5.1)
--- NOTE | 2024-05-31 13:41 | ER ---
Nurse's Notes [facility] Name: Louise Enriquez Age: 78 yrs Sex: Female : 1945 Arrival Date: 05/31/2024 Time: 10:01 Bed 5 Private MD: Diagnosis: Facial weakness Presentation: 05/31 10:20 Chief complaint: EMS states: Left sided facial droop x 5 days. VAN Negative. hb Coronavirus screen: At this time, the client does not indicate any symptoms associated with coronavirus-19. Ebola Screen: No symptoms or risks identified at this time. An acute neurological deficit is present. The patients blood glucose was checked before arriving to the hospital and was found to be normal. Initial Sepsis Screen: Does the patient meet any 2 criteria? No. Patient's initial sepsis screen is negative. Does the patient have a suspected source of infection? No. Patient's initial sepsis screen is negative. Risk Assessment: Do you want to hurt yourself or someone else? Patient reports no desire to harm self or others. Onset of symptoms was May 27, 2024. 10:20 Method Of Arrival: EMS: [facility] 10:20 Acuity: JAIR 3 hb Stroke Activation: Symptom onset > 6 hours Physician: ED Attending; Name: ; Notified At: ; Arrived At: Physician: Mid-Level Provider; Name: ; Notified At: ; Arrived At: Physician: [not used]; Name: ; Notified At: ; Arrived At: Physician: [not used]; Name: ; Notified At: ; Arrived At: Physician: [not used]; Name: ; Notified At: ; Arrived At: Historical: - Allergies: 10:23 No Known Allergies; hb - PMHx: :23 BREAST CA; DVT; Hypertension; Myocardial infarction; hb - Immunization history:: Adult Immunizations up to date. - Infectious Disease History:: Denies. - Social history:: Smoking status: Patient denies any tobacco usage or history of. Screenin:24 [facility] ED Fall Risk Assessment (Adult) History of falling in the last 3 months, hb including since admission No falls in past 3 months (0 pts) Confusion or Disorientation No (0 pts) Intoxicated or Sedated No (0 pts) Impaired Gait Yes (1 pt) Mobility Assist Device Used Yes (1 pt) Altered Elimination No (0 pt) Score/Fall Risk Level 3 or more points = High Risk Oriented to surroundings, Maintained a safe environment, Educated pt \T\ family on fall prevention, incl call for assistance when getting out of bed. Abuse screen: Denies threats or abuse. Denies injuries from another. Nutritional screening: No deficits noted. Tuberculosis screening: No symptoms or risk factors identified. Assessment: 10:24 General: Appears in no apparent distress. Behavior is calm, cooperative. Pain: Denies hb pain. Neuro: Level of Consciousness is awake, alert, obeys commands, Oriented to person, place, time, situation, Air Shovel Operator are equal bilaterally Moves all extremities. Full function Gait is unsteady, uses walker. Speech is normal, Facial droop on left, Pupils are PERRLA, Intact. Cardiovascular: Patient's skin is warm and dry. Respiratory: Respiratory effort is even, unlabored, Respiratory pattern is regular, symmetrical. GI: No signs and/or symptoms were reported involving the gastrointestinal system. : No signs and/or symptoms were reported regarding the genitourinary system. EENT: No signs and/or symptoms were reported regarding the EENT system. Derm: Skin is pink, warm \T\ dry. Musculoskeletal: No signs and/or symptoms reported regarding the musculoskeletal system. 13:10 Reassessment: No changes from previously documented assessment. Patient and/or family mbJuany updated on plan of care and expected duration. Pain level reassessed. Patient is alert, oriented x 3, equal unlabored respirations, skin warm/dry/pink. 14:30 Reassessment: Attempted to call report to transferring facility. No one available to brock take report at this time. On hold for over 25 minutes, no answer. 15:04 Reassessment: Report given to [facility]. mbJuany 15:15 Reassessment: Attempted to call report to transferring facility. Placed on hold then mb9 hung up on. Charge nurse notified. Vital Signs: 10:20 BP 136 / 79; Pulse 94; Resp 15; Temp 98.2; Pulse Ox 99% on R/A; Weight 111.13 kg; hb Height 5 ft. 2 in. ; Pain 0/10; 13:10 BP 125 / 68; Pulse 77; Resp 18; Pulse Ox 100% ; mb9 15:05 BP 155 / 72; Pulse 88; Resp 18; Pulse Ox 100% on R/A; mb9 10:20 Body Mass Index 44.81 (111.13 kg, 157.48 cm) hb 10:20 Pain Scale: Adult hb ED Course: 10:06 Patient arrived in ED. ec2 10:06 Dane Cohen MD is Attending Physician. ec2 10:20 Margret Bradley, RN is Primary Nurse. hb 10:22 Triage completed. hb 10:23 Arm band placed on. hb 10:24 Patient has correct armband on for positive identification. Provided Education on: use hb of call light. 11:11 Inserted saline lock: 20 gauge in right forearm, using aseptic technique. Blood hb collected. Flushed with 10 mL NS. 11:32 CT Neck Angio In Process Unspecified. EDMS 11:32 CT Head Brain wo Cont In Process Unspecified. EDMS 11:33 Head angio In Process Unspecified. EDMS 13:40 Didier Tay MD is Hospitalizing Provider. ec2 13:51 No provider procedures requiring assistance completed. Patient admitted, IV remains in [address] place. 14:33 \[id number] initiated a transfer with Anna with the [facility] transfer center at the request of the patient/\[id number] administrative approval given by Anna Terrazas , patient has been accepted to [facility] ED, Dr. Emily You has accepted the patient in transfer without conference with Dr. Cohen, Report to be called to [phone]. Administered Medications: No medications were administered Medication: 10:24 VIS not applicable for this client. hb Outcome: 13:40 Decision to Hospitalize by Provider. ec2 14:10 ER care complete, transfer ordered by . ec2 15:05 Transferred by ground EMS Transfer form completed. X-rays sent w/ patient. Note: [address] 15:05 Condition: stable 15:05 Instructed on the need for transfer, 15:29 Patient left the ED. 9 Signatures: Dispatcher [employer] EDMargret Rubio, Mercedez Nguyen RN, Mary Beth, RN RN mb9 Corral, Edwin, MD MD ec2 Corrections: (The following items were deleted from the chart) 10:23 10:20 Chief complaint: EMS states: Left sided facial droop x 5 days hb hb 15:02 14:30 Reassessment: Attempted to call report to transferring facility. No one available mb9 to take report at this time mb9
--- NOTE | 2024-05-31 13:41 | EDPHYS ---
Physician Documentation [facility] Name: Louise Enriquez Age: 78 yrs Sex: Female : 1945 Arrival Date: 05/31/2024 Time: 10:01 Bed 5 Private MD: ED Physician Dane Cohen HPI: 05/31 10:24 This 78 yrs old Female presents to ER via EMS with complaints of Facial Droop.ec2 10:24 Patient arrives today d/t concern for L sided facial droop. Reports that she had a CEA ec2 on 05/21, states that she has a baseline L sided facial droop however this has worsened since that time. No falls or injuries. . Historical: - Allergies: 10: No Known Allergies; hb - PMHx: 10: BREAST CA; DVT; Hypertension; Myocardial infarction; hb - Immunization history:: Adult Immunizations up to date. - Infectious Disease History:: Denies. - Social history:: Smoking status: Patient denies any tobacco usage or history of. ROS: 10:26 Constitutional: as per hpi ec2 Exam: 10:26 Constitutional: GEN: NAD Head: atraumatic Eyes: EOMI Ears: External ears are ec2 normal. CV: regular rate LUNGS: no respiratory distress ABD: non-distended SKIN: no evidence of rashes MSK: no evidence of trauma. Neuro: Cranial nerves II through XII with pertinent findings of a left-sided facial droop, no pronator drift, sensation intact throughout. Vital Signs: 10:20 BP 136 / 79; Pulse 94; Resp 15; Temp 98.2; Pulse Ox 99% on R/A; Weight 111.13 kg; hb Height 5 ft. 2 in. ; Pain 0/10; 13:10 BP 125 / 68; Pulse 77; Resp 18; Pulse Ox 100% ; mb9 15:05 BP 155 / 72; Pulse 88; Resp 18; Pulse Ox 100% on R/A; mb9 10:20 Body Mass Index 44.81 (111.13 kg, 157.48 cm) hb 10:20 Pain Scale: Adult hb MDM: 10:07 Medical Screening Exam initiated ec2 10:26 Data reviewed: vital signs. ED course: Patient arrives today with concern for worsening ec2 left-sided facial droop with examination that shows neurofindings as above. Will obtain lab work, CT of the head, CT angio of the head and neck. Differential includes ischemic stroke, arterial pathology, electrolyte disturbances, urinary tract infection. Patient onset of symptoms have been progressive for the past 1.5 weeks, accordingly will not initiate stroke alert.. 12:14 ED course: EKG independently reviewed and interpreted by me, shows normal sinus rhythm, ec2 rate of 80, no acute ST segment elevations, intervals are nonactionable.. 13:36 ED course: Metabolic profile shows slight hypokalemia. CBC is reassuring. Coag profile ec2 is nonactionable. Urine is noninfectious appearing.. 14:09 ED course: Was plan to admit here and have neurology consult however do not have MR ec2 capabilities until Sunday, this would further delay patient's care, will transfer patient to [facility] where she recently had a right sided carotid endarterectomy. Discussed with hospitalist who agrees with this plan, discussed with family who agrees.. 05/31 10:24 Order name: Basic Metabolic Panel; Complete Time: 13:36 ec2 05/31 10:24 Order name: CBC with Diff; Complete Time: 13:36 ec2 05/31 10:24 Order name: PT-INR; Complete Time: 13:36 ec2 05/31 10:24 Order name: Ptt, Activated; Complete Time: 13:36 ec2 05/31 10:24 Order name: UAM; Complete Time: 11:46 ec2 05/31 10:24 Order name: CT Neck Angio; Complete Time: 11:49 ec2 05/31 10:24 Order name: CT Head Brain wo Cont; Complete Time: 11:46 ec2 05/31 10:29 Order name: Head angio; Complete Time: 11:46 EDMS 05/31 13:51 Order name: Brain Wo Cont EDMS 05/31 10:24 Order name: Cardiac monitoring; Complete Time: 12:13 ec2 05/31 10:24 Order name: EKG - Nurse/Tech; Complete Time: 12:13 ec2 05/31 10:24 Order name: IV Saline Lock; Complete Time: 12:13 ec2 05/31 10:24 Order name: Labs collected and sent; Complete Time: 12:13 ec2 05/31 10:24 Order name: O2 Per Protocol; Complete Time: 11:54 ec2 05/31 10:24 Order name: O2 Sat Monitoring; Complete Time: 11:54 ec2 05/31 11:09 Order name: Labs - recollect needed: recollect the labs/ hemolyzed per Jada; eb Complete Time: 12:13 Administered Medications: No medications were administered Disposition Summary: 05/31/24 14:10 Transfer Ordered Notes: Transfer Location: [facility] ec2 Reason: Higher level of care ec2 Condition: Stable(05/31/24 14:10) ec2 Problem: new(05/31/24 14:10) ec2 Symptoms: are unchanged(05/31/24 14:10) ec2 Accepting Physician: transferring doc(05/31/24 15:29) brock Diagnosis - Facial weakness(05/31/24 14:10) ec2 Forms: - Medication Reconciliation Form ec2 - SBAR form ec2 Signatures: Dispatcher [employer] EDMargret Rubio RN RN Mercedez Rose, Sara Gaines RN RN mb9 Dane Cohen MD MD ec2 Corrections: (The following items were deleted from the chart) 10:24 10:24 BASIC METABOLIC PANEL+C.LAB.BRZ ordered. EDMS EDMS 10:24 10:24 CBC+H.LAB.BRZ ordered. EDMS EDMS 10:24 10:24 PROTIME (+INR)+COAG.LAB.BRZ ordered. EDMS EDMS 10:24 10:24 PTT, ACTIVATED+COAG.LAB.BRZ ordered. EDMS EDMS 10:24 10:24 Urinalysis W/Microscopic+U.LAB.BRZ ordered. EDMS EDMS 10:24 10:24 Neck Angio+CT.RAD.BRZ ordered. EDMS EDMS 10:24 10:24 Head Brain Wo Cont+CT.RAD.BRZ ordered. EDMS EDMS 14:09 13:40 Inpatient Admission ec2 ec2 14:09 13:40 Tay, A ec2 ec2 14:09 13:40 Telemetry/MedSurg (Inpatient) ec2 ec2 14:09 13:40 Stable ec2 ec2 14:09 13:40 new ec2 ec2 14:09 13:40 are unchanged ec2 ec2 14: 13:40 Standard ec2 ec2 14:09 13:40 ec2 ec2 14:09 13:40 Facial weakness ec2 ec2 14:13 13:51 CONS Physician Consult ordered. EDMS EDMS 14: 13:51 CBC with Automated Diff ordered. EDMS EDMS 14: 13:51 CBC with Automated Diff ordered. EDMS EDMS 14: 13:51 Comprehensive Metabolic Panel ordered. EDMS EDMS 14: 13:51 Comprehensive Metabolic Panel ordered. EDMS EDMS 15:29 14:10 transferring doc ec2 mb9
[2024-05-31] MEDS ORDERED: ONDANSETRON 4 MG/2 ML VIAL IV PRN (13:42)
[2024-05-31] MEDS ORDERED: ACETAMINOPHEN 500 MG TAB PO PRN (13:42)
[2024-05-31 15:34] VITALS: TEMP 98.2
[2024-05-31 15:35] VITALS: O2SAT 100
[2024-05-31 15:36] VITALS: BP 155/72
--- NOTE | 2024-06-02 12:16 | EKG ---
Test Date: 2024-05-31 Test Time: 12:08:56 Metallography Teacher: HB MEASUREMENT RESULTS: Intervals: Rate: 80 NM: 172 QRSD: 88 QT: 414 QTc: [address]: P: 43 NM: 172 QRS: -44 T: 8 INTERPRETIVE STATEMENTS: Normal sinus rhythm Left axis deviation Possible Anterior infarct, age undetermined Abnormal ECG Compared to ECG 08/18/2022 10:09:20 No significant changes Electronically Signed On 06-02-24 12:13:42 [employer] STILL OPERATOR by Franky Aguilera
== END 2024-05-31 15:29 | disposition short-term general hospital (02) ==
LOC: ER 10:01 → UNDOADMIN 13:42 → ERHOLD 13:42 → ER 15:29
DX: R29.810 Facial weakness (principal); I10 Essential (primary) hypertension; I25.2 Old myocardial infarction; Z86.718 Personal history of other venous thrombosis and embolism
CPT/HCPCS: 93005; 85025; 81001; 80048; 36415; 85610; 85730; 70450; 70496; 70498; 99285; Q9967